=== PATIENT | male | born 1990 | race Caucasian/White ===

== ENCOUNTER 2021-06-23 08:22 | Emergency (ER) | payer OTHER ==
[~2021-06-23] VITALS: Ht 182.9 cm; Wt 83.9 kg
[~2021-06-23 08:22] MED LIST: AMOX500 PO; Bactrim Ds Tab1 EACH PO; CEPH500 PO; Norco 5-325 Ta1 EACH PO; OXYACE5T PO; Percocet 5-3251 EACH PO; Zofran Odt4 MG SL
[2021-06-23 08:35] LABS: Calcium, Ionized (POC) 1.08 mmol/L (1.10-1.46); Chloride (POC) 110 mmol/L (98-108); Creatinine (POC) 0.8 mg/dL (0.8-1.3); Glucose (ISTAT POC) 110 mg/dL (70-99); Hemoglobin (POC) 13.9 g/dL (13.5-17.5); Sodium (POC) 141 mmol/L (135-148); Total CO2 (POC) 18 mmol/L (21-32)
[2021-06-23 08:46] LABS: BASOPHILS ABSOLUTE AUTO 0.03 K/mm3 (0.00-0.23); BASOPHILS PERCENT AUTO 0 % (0-2); EOSINOPHILS ABSOLUTE AUTO 0.02 K/mm3 (0.00-0.68); EOSINOPHILS PERCENT AUTO 0 % (0-6); Hematocrit 40.9 % (37.0-53.0); Hemoglobin 13.9 g/dL (13.5-17.5); IMMATURE GRAN ABSOLUTE AUTO 0.05 K/mm3 (0.00-0.10); IMMATURE GRAN PERCENT AUTO 0 % (0-1); LYMPHOCYTES ABSOLUTE AUTO 0.99 K/mm3 (0.84-5.20); LYMPHOCYTES PERCENT AUTO 7 % (21-46); MONOCYTES PERCENT AUTO 6 % (4-13); Mean Corpuscular HGB 30.4 pg (26.0-34.0); Mean Corpuscular Volume 90 fL (80-100); Mean Platelet Volume 10.8 fL (9.1-12.4); NEUTROPHILS ABSOLUTE AUTO 12.56 K/mm3 (1.96-9.15); NEUTROPHILS PERCENT AUTO 87 % (41-73); Platelet Count 184 K/mm3 (150-400); RDW Coefficient Variation 13.5 % (11.7-14.2); RDW Standard Deviation 44.4 fL (35.1-46.3); Red Blood Cell Count 4.57 M/mm3 (4.30-5.90); White Blood Cell Count 14.45 K/mm3 (4.00-11.30)
[2021-06-23 08:50] LABS: Source, Urine Catheter
[2021-06-23 09:00] LABS: Appearance, Urine Clear (Clear); Bilirubin, Urine Neg (Neg); Blood, Urine 2+ (Neg); Color, Urine Yellow (P-Yellow); Glucose Qualitative, Urine Neg (Neg); Ketones, Urine Neg (Neg); Leukocyte Esterase, Urine 1+ (Neg); Nitrite, Urine Neg (Neg); Protein, Urine 1+ (Neg); Urobilinogen, Urine NORM (Normal); pH, Urine 6.5 (5.0-8.0)
[2021-06-23 09:03] LABS: Alanine Aminotransfer (ALT/SGP 36 U/L (12-78); Albumin, Blood 3.7 g/dL (3.4-5.0); Albumin/Globulin Ratio 1.3 (0.8-1.8); Alk Phos 45 U/L (50-136); Anion Gap 8 mmol/L (6-16); Aspartate Aminotrans (AST/SGOT 37 U/L (12-37); Beta HCG, Quantitative, Serum <1 mIU/mL (0-1); Bilirubin, Total 0.5 mg/dL (0.1-1.0); Blood Urea Nitrogen 12 mg/dL (8-24); Bun/Creatinine Ratio 17.1 (12.0-20.0); CO2, Blood 20 mmol/L (21-32); Calcium, Blood 8.1 mg/dL (8.5-10.1); Chloride, Blood 114 mmol/L (98-108); Ethanol (Alcohol), Blood, Med 122 mg/dL; Globulin, Blood 2.8 g/dL (2.2-4.0); Glomerular Filtration Rate >60 (60-); Glucose, Blood 110 mg/dL (70-99); Potassium, Blood 4.1 mmol/L (3.5-5.5); Sodium, Blood 142 mmol/L (136-145); Total Protein, Blood 6.5 g/dL (6.4-8.2)
[2021-06-23 09:28] LABS: CPK Creatine Kinase 1026 U/L (39-308)
[2021-06-23 09:31] LABS: International Normalized Ratio 1.13; Prothrombin Time Results 12.1 Sec (9.7-11.5)
[2021-06-23 09:32] LABS: Bacteria Rare /hpf; Mucus Light (0-Heavy); Squamous Epithelial Cells Few /hpf (Few)
[2021-06-23 09:42] LABS: Creatine Kinase MB 25.1 ng/mL (0.0-3.6); Creatine Kinase MB Index 2.4 (0.0-4.0)
[2021-06-23 12:33] LABS: U Amphetamine Screen Not Detected; U Barbituate Screen Not Detected; U Benzodiazapine Screen Not Detected; U Buprenorphine Screen Not Detected; U Cannabinoids Screen DETECTED; U Cocaine Screen DETECTED; U Methadone Screen Not Detected; U Methamphetamine Screen Not Detected; U Opiates Screen Not Detected; U Oxycodone Screen Not Detected; U Phencyclidine Screen Not Detected; U Propoxyphene Screen Not Detected
== END 2021-06-23 09:20 | disposition short-term general hospital (02) ==
LOC: ER 08:22
PROVIDERS: Emergency Medicine
DX: S14.155A Other incomplete lesion at C5 level of cervical spinal cord, initial encounter (principal); S00.81XA Abrasion of other part of head, initial encounter; S40.212A Abrasion of left shoulder, initial encounter; S40.211A Abrasion of right shoulder, initial encounter; Z87.891 Personal history of nicotine dependence; V48.5XXA Car driver injured in noncollision transport accident in traffic accident, initial encounter; Y92.488 Other paved roadways as the place of occurrence of the external cause
CPT/HCPCS: 51702; 70450; 71045; 71260; 72125; 72170; 74177; 80047; 80053; 81001; 82550; 82553; 83605; 83690; 84702; 85014; 85025; 85610; 86850; 86900; 86901; 87086; 93005; 93010; 96374-59; 99285-25; G0480; J1170; Q9967

== ENCOUNTER 2021-11-22 17:07 | Emergency (ER) | payer OTHER ==
[~2021-11-22] VITALS: Ht 185.4 cm; Wt 59.0 kg
[2021-11-22] MEDS ORDERED: BACLOFEN10 M4 PO (17:44)
[2021-11-22] MEDS ORDERED: GABAPENTIN600 MG PO (17:45)
[2021-11-22] MEDS ORDERED: Ventolin5 MG/1 ML INH (17:45)
[2021-11-22] MEDS ORDERED: CONSTULOSE10 GM/155 PO (17:46)
[2021-11-22] MEDS ORDERED: ONDA4ODT MM (17:46)
[2021-11-22] MEDS ORDERED: ONELAX10 MG PR (17:47)
== END 2021-11-22 21:11 | disposition home or self-care (01) ==
LOC: ER 17:07
DX: T82.594A Other mechanical complication of infusion catheter, initial encounter (principal); Z87.891 Personal history of nicotine dependence
CPT/HCPCS: 99283

== ENCOUNTER → 2021-11-24 | Outpatient (CLI) | payer OTHER ==
[~2021-11-24] MED LIST changes: +BACLOFEN10 M4 PO; +CONSTULOSE10 GM/155 PO; +GABAPENTIN600 MG PO; +ONDA4ODT MM; +ONELAX10 MG PR; +Ventolin5 MG/1 ML INH
[2021-11-24 17:27] LABS: BASOPHILS ABSOLUTE AUTO 0.01 K/mm3 (0.00-0.23); BASOPHILS PERCENT AUTO 0 % (0-2); EOSINOPHILS ABSOLUTE AUTO 0.07 K/mm3 (0.00-0.68); EOSINOPHILS PERCENT AUTO 2 % (0-6); Hemoglobin 12.2 g/dL (13.5-17.5); IMMATURE GRAN PERCENT AUTO 0 % (0-1); LYMPHOCYTES ABSOLUTE AUTO 1.41 K/mm3 (0.84-5.20); LYMPHOCYTES PERCENT AUTO 34 % (21-46); MONOCYTES ABSOLUTE AUTO 0.43 K/mm3 (0.16-1.47); MONOCYTES PERCENT AUTO 10 % (4-13); Mean Corpuscular HGB 28.4 pg (26.0-34.0); Mean Corpuscular Volume 86 fL (80-100); Mean Platelet Volume 10.6 fL (9.1-12.4); NEUTROPHILS ABSOLUTE AUTO 2.23 K/mm3 (1.96-9.15); NEUTROPHILS PERCENT AUTO 54 % (41-73); Platelet Count 219 K/mm3 (150-400); RDW Coefficient Variation 15.6 % (11.7-14.2); White Blood Cell Count 4.15 K/mm3 (4.00-11.30)
[2021-11-24 17:31] LABS: Anion Gap 6 mmol/L (6-16); Blood Urea Nitrogen 13 mg/dL (8-24); Bun/Creatinine Ratio 40.2 (12.0-20.0); CO2, Blood 27 mmol/L (21-32); Calcium, Blood 8.5 mg/dL (8.5-10.1); Chloride, Blood 106 mmol/L (98-108); Creatinine, Blood 0.32 mg/dL (0.60-1.20); Glomerular Filtration Rate >60 (60-); Glucose, Blood 90 mg/dL (70-99); Potassium, Blood 3.6 mmol/L (3.5-5.5); Sodium, Blood 139 mmol/L (136-145)
== END ==
LOC: LAB HH 16:11
DX: M46.28 Osteomyelitis of vertebra, sacral and sacrococcygeal region (principal)
CPT/HCPCS: 80048; 85025; 86140

== ENCOUNTER → 2021-11-27 | Outpatient (CLI) | payer OTHER ==
[2021-11-27 20:02] LABS: Alanine Aminotransfer (ALT/SGP 74 U/L (12-78); Albumin, Blood 3.2 g/dL (3.4-5.0); Albumin/Globulin Ratio 0.9 (0.8-1.8); Alk Phos 97 U/L (50-136); Anion Gap 6 mmol/L (6-16); Aspartate Aminotrans (AST/SGOT 28 U/L (12-37); Bilirubin, Total 0.2 mg/dL (0.1-1.0); Blood Urea Nitrogen 10 mg/dL (8-24); Bun/Creatinine Ratio 31.9 (12.0-20.0); CO2, Blood 27 mmol/L (21-32); Calcium, Blood 8.6 mg/dL (8.5-10.1); Chloride, Blood 107 mmol/L (98-108); Creatinine, Blood 0.31 mg/dL (0.60-1.20); Globulin, Blood 3.4 g/dL (2.2-4.0); Glomerular Filtration Rate >60 (60-); Glucose, Blood 112 mg/dL (70-99); Potassium, Blood 3.9 mmol/L (3.5-5.5); Sodium, Blood 140 mmol/L (136-145); Total Protein, Blood 6.6 g/dL (6.4-8.2)
== END ==
LOC: LAB 12:55 → LAB SHORT 12:55 → LAB HH 12:55
DX: M46.28 Osteomyelitis of vertebra, sacral and sacrococcygeal region (principal)
CPT/HCPCS: 80053; 86140

== ENCOUNTER 2021-11-29 17:34 | Emergency (ER) | payer OTHER ==
[~2021-11-29] VITALS: Ht 185.4 cm; Wt 59.0 kg
== END 2021-11-29 23:32 | disposition home or self-care (01) ==
LOC: ER 17:34
DX: T82.594A Other mechanical complication of infusion catheter, initial encounter (principal); G40.909 Epilepsy, unspecified, not intractable, without status epilepticus; Z79.899 Other long term (current) drug therapy; Z87.891 Personal history of nicotine dependence
CPT/HCPCS: 99283

== ENCOUNTER 2021-11-30 11:56 | Emergency (ER) | payer OTHER ==
[~2021-11-30] VITALS: Ht 185.4 cm; Wt 59.0 kg
== END 2021-11-30 14:30 | disposition home or self-care (01) ==
LOC: ER 11:56
DX: T82.594A Other mechanical complication of infusion catheter, initial encounter (principal); Z87.891 Personal history of nicotine dependence; Z79.899 Other long term (current) drug therapy
CPT/HCPCS: 99283

== ENCOUNTER → 2021-12-04 | Outpatient (CLI) | payer OTHER ==
[2021-12-04 20:07] LABS: Alanine Aminotransfer (ALT/SGP 45 U/L (12-78); Albumin/Globulin Ratio 0.9 (0.8-1.8); Alk Phos 95 U/L (50-136); Anion Gap 8 mmol/L (6-16); Aspartate Aminotrans (AST/SGOT 16 U/L (12-37); Bilirubin, Total 0.2 mg/dL (0.1-1.0); Blood Urea Nitrogen 9 mg/dL (8-24); CO2, Blood 27 mmol/L (21-32); Calcium, Blood 8.7 mg/dL (8.5-10.1); Chloride, Blood 108 mmol/L (98-108); Creatinine, Blood 0.36 mg/dL (0.60-1.20); Globulin, Blood 3.4 g/dL (2.2-4.0); Glomerular Filtration Rate >60 (60-); Glucose, Blood 97 mg/dL (70-99); Potassium, Blood 4.1 mmol/L (3.5-5.5); Sodium, Blood 143 mmol/L (136-145); Total Protein, Blood 6.4 g/dL (6.4-8.2)
== END ==
LOC: LAB SHORT 14:00 → LAB HH 14:00
PROVIDERS: Nurse Practitioner Family
DX: M46.28 Osteomyelitis of vertebra, sacral and sacrococcygeal region (principal)
CPT/HCPCS: 80053; 86140

== ENCOUNTER → 2021-12-22 | Outpatient (CLI) | payer OTHER ==
[2021-12-22 17:57] LABS: Source, Urine Foley catheter
[2021-12-22 18:53] LABS: Bilirubin, Urine Neg (Neg); Blood, Urine 5+ (Neg); Glucose Qualitative, Urine Neg (Neg); Ketones, Urine Neg (Neg); Leukocyte Esterase, Urine 3+ (Neg); Nitrite, Urine Pos (Neg); Protein, Urine 2+ (Neg); Specific Gravity, Urine 1.015 (1.003-1.022); Urobilinogen, Urine NORM (Normal)
[2021-12-22 19:00] LABS: Appearance, Urine Hazy (Clear); Color, Urine Pale Yellow (P-Yellow)
[2021-12-22 19:02] LABS: Red Blood Cells, Urine 25-50 /hpf (0-2)
[2021-12-22 19:09] LABS: Bacteria Many /hpf; Squamous Epithelial Cells Few /hpf (Few)
[2021-12-22 19:10] LABS: Amorphous Heavy (0-Heavy)
[2021-12-22 19:11] LABS: Calcium Oxalate Crystals Rare /hpf
== END | disposition home or self-care (01) ==
LOC: LAB SHORT 17:54 → LAB HH 17:54
PROVIDERS: Nurse Practitioner Family
DX: N31.9 Neuromuscular dysfunction of bladder, unspecified (principal); Z87.440 Personal history of urinary (tract) infections
CPT/HCPCS: 81001; 87077; 87086; 87186

== ENCOUNTER 2021-12-29 01:10 | Day surgery (SDC) | payer OTHER | END 2021-12-29 22:46 | disposition home or self-care (01) | LOC: WOUND 01:10 | DX: L89.154 Pressure ulcer of sacral region, stage 4 (principal); L89.323 Pressure ulcer of left buttock, stage 3; L89.892 Pressure ulcer of other site, stage 2; G82.21 Paraplegia, complete | CPT/HCPCS: G0463 ==

== ENCOUNTER 2022-01-01 12:42 | Inpatient (IN) | payer OTHER ==
[~2022-01-01] VITALS: Ht 185.4 cm; Wt 56.7 kg
[~2022-01-01 12:42] MED LIST changes: +IPRAT-ALBUT 0.5-3 ML NEB; -Ventolin5 MG/1 ML INH
[2022-01-01 14:22] LABS: BASOPHILS ABSOLUTE AUTO 0.04 K/mm3 (0.00-0.23); BASOPHILS PERCENT AUTO 0 % (0-2); EOSINOPHILS ABSOLUTE AUTO 0.02 K/mm3 (0.00-0.68); EOSINOPHILS PERCENT AUTO 0 % (0-6); Hematocrit 36.1 % (37.0-53.0); IMMATURE GRAN ABSOLUTE AUTO 0.05 K/mm3 (0.00-0.10); IMMATURE GRAN PERCENT AUTO 0 % (0-1); LYMPHOCYTES ABSOLUTE AUTO 1.54 K/mm3 (0.84-5.20); LYMPHOCYTES PERCENT AUTO 10 % (21-46); MONOCYTES ABSOLUTE AUTO 0.77 K/mm3 (0.16-1.47); MONOCYTES PERCENT AUTO 5 % (4-13); Mean Corpuscular HGB 27.4 pg (26.0-34.0); Mean Corpuscular HGB Conc 33.2 g/dL (31.5-36.5); Mean Corpuscular Volume 82 fL (80-100); Mean Platelet Volume 9.5 fL (9.1-12.4); NEUTROPHILS ABSOLUTE AUTO 13.67 K/mm3 (1.96-9.15); NEUTROPHILS PERCENT AUTO 85 % (41-73); Platelet Count 628 K/mm3 (150-400); RDW Coefficient Variation 14.6 % (11.7-14.2); RDW Standard Deviation 43.5 fL (35.1-46.3); Red Blood Cell Count 4.38 M/mm3 (4.30-5.90); White Blood Cell Count 16.09 K/mm3 (4.00-11.30)
[2022-01-01 14:42] LABS: Source, Urine Foley catheter
[2022-01-01 14:42] LABS: Alanine Aminotransfer (ALT/SGP 33 U/L (12-78); Albumin, Blood 3.1 g/dL (3.4-5.0); Albumin/Globulin Ratio 0.6 (0.8-1.8); Alk Phos 103 U/L (50-136); Anion Gap 9 mmol/L (6-16); Aspartate Aminotrans (AST/SGOT 10 U/L (12-37); Bilirubin, Total 0.4 mg/dL (0.1-1.0); Blood Urea Nitrogen 13 mg/dL (8-24); Bun/Creatinine Ratio 44.4 (12.0-20.0); CO2, Blood 24 mmol/L (21-32); Calcium, Blood 9.6 mg/dL (8.5-10.1); Chloride, Blood 108 mmol/L (98-108); Creatinine, Blood 0.29 mg/dL (0.60-1.20); Globulin, Blood 4.8 g/dL (2.2-4.0); Glomerular Filtration Rate >60 (60-); Glucose, Blood 114 mg/dL (70-99); Sodium, Blood 141 mmol/L (136-145); Total Protein, Blood 7.9 g/dL (6.4-8.2)
[2022-01-01 14:46] LABS: Bilirubin, Urine Neg (Neg); Blood, Urine 4+ (Neg); Glucose Qualitative, Urine Neg (Neg); Ketones, Urine 3+ (Neg); Leukocyte Esterase, Urine 3+ (Neg); Nitrite, Urine Pos (Neg); Protein, Urine 3+ (Neg); Specific Gravity, Urine 1.025 (1.003-1.022); Urobilinogen, Urine 1+ (Normal)
[2022-01-01 14:56] LABS: Appearance, Urine Hazy (Clear); Color, Urine Amber (P-Yellow)
[2022-01-01 14:57] LABS: Bacteria Many /hpf; Red Blood Cells, Urine 25-50 /hpf (0-2); Squamous Epithelial Cells Few /hpf (Few)
[2022-01-01 14:58] LABS: Amorphous Light (0-Heavy)
[2022-01-01 15:14] LABS: Influenza A, PCR NEGATIVE (NEGATIVE); Influenza B, PCR NEGATIVE (NEGATIVE); Resp Syncytial Virus, PCR NEGATIVE (NEGATIVE); SARS-Cov-2 (COVID-19) PCR, MMC NEGATIVE (NEGATIVE)
[2022-01-01] MEDS ORDERED: MULVITA PO (18:31)
[2022-01-02 02:59] LABS: Adenovirus Not Detected (NOT DETECT); Bordetella pertussis Not Detected (NOT DETECT); Chlamydophila pneumoniae Not Detected (NOT DETECT); Coronavirus 229E Not Detected (NOT DETECT); Coronavirus HKU1 Not Detected (NOT DETECT); Coronavirus NL63 Not Detected (NOT DETECT); Coronavirus OC43 Not Detected (NOT DETECT); Human Metapneumovirus Not Detected (NOT DETECT); Human Rhinovirus/Enterovirus Not Detected (NOT DETECT); Influenza A/2009-H1 Not Detected (NOT DETECT); Influenza A/H1 Not Detected (NOT DETECT); Influenza A/H3 Not Detected (NOT DETECT); Influenza B Not Detected (NOT DETECT); Mycoplasma pneumoniae Not Detected (NOT DETECT); Parainfluenza Virus 1 Not Detected (NOT DETECT); Parainfluenza Virus 2 Not Detected (NOT DETECT); Parainfluenza Virus 3 Not Detected (NOT DETECT); Parainfluenza Virus 4 Not Detected (NOT DETECT); Respiratory Syncytial Virus Not Detected (NOT DETECT); SARS-Cov-2 (COVID-19), BioFire Not Detected (NOT DETECT)
--- NOTE | 2022-01-02 04:42 | NUR ---
SHIFT SUMMARY PATIENT ALERT AND ORIENTED X4 ABLE TO VOICED NEEDS NO SOB NOTED LUNGS SOUND CLEAR DRY COUGH NOTED C/O NAUSEA X1 WITH NO VOMIT.MCMAHAN CATH DRAINING WELL HI URINE WOUND VAC FROM HOME TO HIS SACRUM REMOVED AND REPLACED WITH HOSPITAL WOUND VAC WOUND TO SACRUM UNSTAGABLE #2 RIGH LOWER BUTTOCK WOUND #3 PRESSURE POINT TO LEFT LOWER BUTTOCK .WOUND TO SACRUM BRIDGE WITH RIGHT BUTTOCK USING ONE WOUND VAC RUNNING AT 120MM/HG AND MAPLEX TO LEFT BUTTOCK PRESSURE POINT.PT QUADRAPLEGIA TURN AND REPOSTION Q 2HRS ON IV ABT VANCOMYCIN .
[2022-01-02 05:53] LABS: Hematocrit 31.8 % (37.0-53.0); Hemoglobin 10.3 g/dL (13.5-17.5); Mean Corpuscular HGB 27.2 pg (26.0-34.0); Mean Corpuscular HGB Conc 32.4 g/dL (31.5-36.5); Mean Corpuscular Volume 84 fL (80-100); Mean Platelet Volume 9.7 fL (9.1-12.4); Platelet Count 584 K/mm3 (150-400); RDW Coefficient Variation 14.6 % (11.7-14.2); RDW Standard Deviation 44.8 fL (35.1-46.3); Red Blood Cell Count 3.79 M/mm3 (4.30-5.90); White Blood Cell Count 12.82 K/mm3 (4.00-11.30)
[2022-01-02 05:58] LABS: Anion Gap 8 mmol/L (6-16); Blood Urea Nitrogen 12 mg/dL (8-24); Bun/Creatinine Ratio 33.7 (12.0-20.0); CO2, Blood 24 mmol/L (21-32); Calcium, Blood 8.8 mg/dL (8.5-10.1); Chloride, Blood 106 mmol/L (98-108); Creatinine, Blood 0.36 mg/dL (0.60-1.20); Glomerular Filtration Rate >60 (60-); Glucose, Blood 86 mg/dL (70-99); Potassium, Blood 3.6 mmol/L (3.5-5.5); Sodium, Blood 138 mmol/L (136-145)
--- NOTE | 2022-01-02 17:16 | NUR ---
SHIFT SUMMARY PT A&O X4 AND IN PLEASENT MOOD T/O SHIFT. PT MOM @ BEDSIDE. TELE DC'ED THIS SHIFT PER ORDERS. PT DENIES PAIN. CLOVER DRESSING TO L BUTTOCKS CHANGED THIS SHIFT, WOUND VAC COMPRESSED AND DRAINING. BLE FOAM BOOTS IN PLACE. MCMAHAN DRAINING TO GRAVITY. VSS. CALL LIGHT W/IN REACH. PLAN TO CONT. IV ABX @ THIS TIME.
[2022-01-02] MEDS ORDERED: [UNRECOGNIZED DRUG - CODE] PO (19:57)
--- NOTE | 2022-01-03 05:00 | NUR ---
SHIFT SUMMARY PATIENT REMAIN ALERT QUOC PAIN AT NO SOB NOTED TURN AND REPOSTION Q 2HRS WOUND VAC ON AND INTACT CONT ABT /IV NO ACUTE CHANGE IN THIS SHIFT
[2022-01-03 05:25] LABS: BASOPHILS ABSOLUTE AUTO 0.07 K/mm3 (0.00-0.23); BASOPHILS PERCENT AUTO 1 % (0-2); EOSINOPHILS ABSOLUTE AUTO 0.06 K/mm3 (0.00-0.68); EOSINOPHILS PERCENT AUTO 1 % (0-6); Hematocrit 31.6 % (37.0-53.0); Hemoglobin 10.3 g/dL (13.5-17.5); IMMATURE GRAN ABSOLUTE AUTO 0.04 K/mm3 (0.00-0.10); IMMATURE GRAN PERCENT AUTO 0 % (0-1); LYMPHOCYTES ABSOLUTE AUTO 1.88 K/mm3 (0.84-5.20); LYMPHOCYTES PERCENT AUTO 16 % (21-46); MONOCYTES PERCENT AUTO 10 % (4-13); Mean Corpuscular HGB 27.2 pg (26.0-34.0); Mean Corpuscular HGB Conc 32.6 g/dL (31.5-36.5); Mean Corpuscular Volume 83 fL (80-100); Mean Platelet Volume 9.7 fL (9.1-12.4); NEUTROPHILS ABSOLUTE AUTO 8.35 K/mm3 (1.96-9.15); NEUTROPHILS PERCENT AUTO 73 % (41-73); Platelet Count 551 K/mm3 (150-400); RDW Coefficient Variation 14.7 % (11.7-14.2); Red Blood Cell Count 3.79 M/mm3 (4.30-5.90)
[2022-01-03 05:49] LABS: Anion Gap 8 mmol/L (6-16); Blood Urea Nitrogen 7 mg/dL (8-24); Bun/Creatinine Ratio 19.2 (12.0-20.0); CO2, Blood 23 mmol/L (21-32); Calcium, Blood 8.8 mg/dL (8.5-10.1); Chloride, Blood 107 mmol/L (98-108); Creatinine, Blood 0.36 mg/dL (0.60-1.20); Glomerular Filtration Rate >60 (60-); Glucose, Blood 103 mg/dL (70-99); Potassium, Blood 3.7 mmol/L (3.5-5.5); Sodium, Blood 138 mmol/L (136-145)
[2022-01-03] MEDS ORDERED: JUVEN PACKET1 EAC3 PO (14:58)
[2022-01-03] MEDS ORDERED: VITAMIN C125 MG PO (14:59)
[2022-01-03] MEDS ORDERED: VISBIOME 112.51 EACH PO (15:00)
[2022-01-03] MEDS ORDERED: ZINC220 PO (15:00)
--- NOTE | 2022-01-03 15:45 | NUR ---
Patient is a [facility] patient who was transferred to [facility] on 01/01/2022 due to sepsis. Patient is to discharge today- 01/03/2022 with resumption of home health orders. Gathered supporting documentation for resumption (face sheet, discharge order, med list, and H&P) and faxed to [facility] for review. No further interventions required. Angela Rodriguez Referral Liaison
--- NOTE | 2022-01-03 17:09 | NUR ---
SHIFT SUMMARY PT IS A&O, PLEASANT AND CO-OP. QUADRAPLEGIC WITH ONLY GROSS MOTOR SKILLS TO BUE'S. CHRONIC MCMAHAN TO GRAVITY, PATENT. WOUND VAC TO BUTTOCKS/COCCYX. IV ABX ADMINISTERED PER EMAR. DR CISNEROS HERE TO SEE PT THIS AM. PT CLEARED FOR D/C. WOUND VAC DRSG CHANGED, PER DR CISNEROS, PRIOR TO D/C HOME. TRANSPORT HERE THIS AFTERNOON TO [facility] PT. HOME WOUND VAC IN PLACE WITH NEW DRSG AT D/C. MEDS FAXED TO [facility], PER PT REQUEST. [facility]ONGING[facility]S WENT WITH PT.
[2022-04-24] MEDS ORDERED: GUAI600T33 PO (14:17)
[2022-04-24] MEDS ORDERED: ALBU90OI INH (14:17)
[2022-04-24] MEDS ORDERED: LINE600 PO (14:18)
[2022-04-24] MEDS ORDERED: AMOCLA875 PO (14:18)
[2022-04-24] MEDS ORDERED: APHEN325 MG PO (14:20)
[2022-05-15] MEDS ORDERED: Acetaminophen325 M1 PO (13:18)
[2022-05-15] MEDS ORDERED: AMOCLA875 PO (13:19)
[2022-05-15] MEDS ORDERED: PROBIOTIC1 EA13 PO (13:21)
[2022-06-02] MEDS ORDERED: CEPH500 PO (16:44)
== END 2022-01-03 16:35 | disposition home or self-care (01) | DRG 871 ==
LOC: ER 12:42 → MEDS 17:07
PROVIDERS: Internal Medicine; Physician Assistant; ADMIT Internal Medicine
DX: A41.9 Sepsis, unspecified organism (principal); L89.153 Pressure ulcer of sacral region, stage 3; G82.50 Quadriplegia, unspecified; E43 Unspecified severe protein-calorie malnutrition; N39.0 Urinary tract infection, site not specified; L03.116 Cellulitis of left lower limb; Z68.1 Body mass index [BMI] 19.9 or less, adult; Z20.822 Contact with and (suspected) exposure to COVID-19; R65.20 Severe sepsis without septic shock; G40.909 Epilepsy, unspecified, not intractable, without status epilepticus; B96.5 Pseudomonas (aeruginosa) (mallei) (pseudomallei) as the cause of diseases classified elsewhere; Z87.891 Personal history of nicotine dependence; Z90.49 Acquired absence of other specified parts of digestive tract; Z79.899 Other long term (current) drug therapy; Y84.6 Urinary catheterization as the cause of abnormal reaction of the patient, or of later complication, without mention of misadventure at the time of the procedure; S12.500S Unspecified displaced fracture of sixth cervical vertebra, sequela; W18.39XD Other fall on same level, subsequent encounter
CPT/HCPCS: 0202U; 0241U; 36415; 51702; 71045; 80048; 80053; 81001; 83605; 83880; 84145; 85025; 85027; 87040; 87077; 87086; 87186; 96365; 96367; 99285-25; A9270; J1650; J2405; J2543; J3370; J7030; J7050

== ENCOUNTER 2022-01-12 02:29 | Day surgery (SDC) | payer OTHER ==
[~2022-01-12 02:29] MED LIST changes: +JUVEN PACKET1 EAC3 PO; +MULVITA PO; +VISBIOME 112.51 EACH PO; +VITAMIN C125 MG PO; +ZINC220 PO; +[UNRECOGNIZED DRUG - CODE] PO
[2022-04-24] MEDS ORDERED: GUAI600T33 PO (14:17)
[2022-04-24] MEDS ORDERED: ALBU90OI INH (14:17)
[2022-04-24] MEDS ORDERED: AMOCLA875 PO (14:18)
[2022-04-24] MEDS ORDERED: LINE600 PO (14:18)
[2022-04-24] MEDS ORDERED: APHEN325 MG PO (14:20)
[2022-05-15] MEDS ORDERED: Acetaminophen325 M1 PO (13:18)
[2022-05-15] MEDS ORDERED: AMOCLA875 PO (13:19)
[2022-05-15] MEDS ORDERED: PROBIOTIC1 EA13 PO (13:21)
[2022-06-02] MEDS ORDERED: CEPH500 PO (16:44)
== END 2022-01-12 23:15 | disposition home or self-care (01) ==
LOC: WOUND 02:29
DX: L89.154 Pressure ulcer of sacral region, stage 4 (principal); L89.892 Pressure ulcer of other site, stage 2; L89.314 Pressure ulcer of right buttock, stage 4; L89.323 Pressure ulcer of left buttock, stage 3; G82.21 Paraplegia, complete
CPT/HCPCS: A9270

== ENCOUNTER 2022-01-19 02:52 | Day surgery (SDC) | payer OTHER | END 2022-01-19 22:52 | disposition home or self-care (01) | LOC: WOUND 02:52 | DX: L89.154 Pressure ulcer of sacral region, stage 4 (principal); L89.314 Pressure ulcer of right buttock, stage 4; L89.323 Pressure ulcer of left buttock, stage 3; G82.21 Paraplegia, complete ==

== ENCOUNTER 2022-02-02 00:23 | Day surgery (SDC) | payer OTHER | END 2022-02-02 23:08 | disposition home or self-care (01) | LOC: WOUND 00:23 | DX: L89.154 Pressure ulcer of sacral region, stage 4 (principal); L89.314 Pressure ulcer of right buttock, stage 4; G82.21 Paraplegia, complete ==

== ENCOUNTER 2022-02-09 02:37 | Day surgery (SDC) | payer OTHER | END 2022-02-09 23:09 | disposition home or self-care (01) | LOC: WOUND 02:37 | DX: L89.154 Pressure ulcer of sacral region, stage 4 (principal); L89.314 Pressure ulcer of right buttock, stage 4; G82.21 Paraplegia, complete ==

== ENCOUNTER 2022-02-23 01:10 | Day surgery (SDC) | payer OTHER | END 2022-02-23 22:44 | disposition home or self-care (01) | LOC: WOUND 01:10 | DX: L89.154 Pressure ulcer of sacral region, stage 4 (principal); L89.314 Pressure ulcer of right buttock, stage 4; G82.21 Paraplegia, complete; R77.0 Abnormality of albumin ==

== ENCOUNTER 2022-03-02 00:23 | Day surgery (SDC) | payer OTHER | END 2022-03-02 22:50 | disposition home or self-care (01) | LOC: WOUND 00:23 | DX: L89.154 Pressure ulcer of sacral region, stage 4 (principal); L89.314 Pressure ulcer of right buttock, stage 4; G82.21 Paraplegia, complete; R77.0 Abnormality of albumin ==

== ENCOUNTER 2022-03-16 01:08 | Day surgery (SDC) | payer OTHER | END 2022-03-17 23:39 | disposition home or self-care (01) | LOC: WOUND 01:08 | DX: L89.154 Pressure ulcer of sacral region, stage 4 (principal); L89.314 Pressure ulcer of right buttock, stage 4; G82.21 Paraplegia, complete; R77.0 Abnormality of albumin ==

== ENCOUNTER 2022-03-30 03:31 | Day surgery (SDC) | payer OTHER | END 2022-03-30 23:14 | disposition home or self-care (01) | LOC: WOUND 03:31 | DX: L89.154 Pressure ulcer of sacral region, stage 4 (principal); L89.314 Pressure ulcer of right buttock, stage 4; G82.21 Paraplegia, complete; R77.0 Abnormality of albumin ==

== ENCOUNTER 2022-04-13 01:17 | Day surgery (SDC) | payer OTHER | END 2022-04-13 22:55 | disposition home or self-care (01) | LOC: WOUND 01:17 | DX: L89.154 Pressure ulcer of sacral region, stage 4 (principal); L89.314 Pressure ulcer of right buttock, stage 4; G82.21 Paraplegia, complete; R77.0 Abnormality of albumin ==

== ENCOUNTER 2022-04-21 08:51 | Inpatient (IN) | payer OTHER ==
[~2022-04-21] VITALS: Ht 177.8 cm; Wt 59.3 kg
[2022-04-21 09:31] LABS: BASOPHILS ABSOLUTE AUTO 0.04 K/mm3 (0.00-0.23); BASOPHILS PERCENT AUTO 0 % (0-2); EOSINOPHILS PERCENT AUTO 0 % (0-6); Hematocrit 41.8 % (37.0-53.0); Hemoglobin 13.7 g/dL (13.5-17.5); IMMATURE GRAN ABSOLUTE AUTO 0.07 K/mm3 (0.00-0.10); IMMATURE GRAN PERCENT AUTO 1 % (0-1); LYMPHOCYTES ABSOLUTE AUTO 0.76 K/mm3 (0.84-5.20); LYMPHOCYTES PERCENT AUTO 6 % (21-46); MONOCYTES PERCENT AUTO 3 % (4-13); Mean Corpuscular HGB 25.9 pg (26.0-34.0); Mean Corpuscular HGB Conc 32.8 g/dL (31.5-36.5); Mean Corpuscular Volume 79 fL (80-100); NEUTROPHILS ABSOLUTE AUTO 12.41 K/mm3 (1.96-9.15); NEUTROPHILS PERCENT AUTO 91 % (41-73); Platelet Count 540 K/mm3 (150-400); RDW Coefficient Variation 16.5 % (11.7-14.2); RDW Standard Deviation 47.3 fL (35.1-46.3); Red Blood Cell Count 5.28 M/mm3 (4.30-5.90); White Blood Cell Count 13.68 K/mm3 (4.00-11.30)
[2022-04-21 09:45] LABS: Magnesium, Blood 2.3 mg/dL (1.6-2.4)
[2022-04-21 09:50] LABS: Alanine Aminotransfer (ALT/SGP 41 U/L (12-78); Albumin, Blood 2.8 g/dL (3.4-5.0); Albumin/Globulin Ratio 0.7 (0.8-1.8); Alk Phos 119 U/L (50-136); Anion Gap 10 mmol/L (6-16); Aspartate Aminotrans (AST/SGOT 26 U/L (12-37); Bilirubin, Direct <0.1 mg/dL (0.0-0.3); Bilirubin, Indirect Unable to Calculate mg/dL (0.1-0.7); Bilirubin, Total 0.2 mg/dL (0.1-1.0); Blood Urea Nitrogen 13 mg/dL (8-24); Bun/Creatinine Ratio 36.1 (12.0-20.0); CO2, Blood 22 mmol/L (21-32); Calcium, Blood 8.7 mg/dL (8.5-10.1); Chloride, Blood 111 mmol/L (98-108); Creatinine, Blood 0.36 mg/dL (0.60-1.20); Globulin, Blood 4.1 g/dL (2.2-4.0); Glomerular Filtration Rate 153 (60-); Glucose, Blood 169 mg/dL (70-99); Phosphorus, Blood 2.5 mg/dL (2.5-4.9); Potassium, Blood 3.6 mmol/L (3.5-5.5); Sodium, Blood 143 mmol/L (136-145); Total Protein, Blood 6.9 g/dL (6.4-8.2)
[2022-04-21 10:14] LABS: International Normalized Ratio 1.09; Prothrombin Time Results 11.4 Sec (9.7-11.5)
[2022-04-21 10:20] LABS: Source, Urine Foley catheter
[2022-04-21 10:33] LABS: Appearance, Urine Hazy (Clear); Bilirubin, Urine Neg (Neg); Blood, Urine 4+ (Neg); Color, Urine Yellow (P-Yellow); Glucose Qualitative, Urine Neg (Neg); Ketones, Urine Neg (Neg); Leukocyte Esterase, Urine 3+ (Neg); Nitrite, Urine Pos (Neg); Protein, Urine 2+ (Neg); Urobilinogen, Urine 1+ (Normal)
[2022-04-21 10:38] LABS: Red Blood Cells, Urine 25-50 /hpf (0-2); White Blood Cells, Urine 50-100 /hpf (0-5)
[2022-04-21 10:39] LABS: Bacteria Many /hpf; Squamous Epithelial Cells Rare /hpf (Few)
[2022-04-21 11:09] LABS: Base Excess Venous 2.1 mmol/L; Bicarbonate Venous 25.2 mmol/L (24.0-30.0); PCO2 Venous 52.2 mmHg (38-42); pH Blood Venous 7.34 (7.34-7.37)
[2022-04-21 12:23] LABS: Influenza A, PCR NEGATIVE (NEGATIVE); Influenza B, PCR NEGATIVE (NEGATIVE); Resp Syncytial Virus, PCR NEGATIVE (NEGATIVE); SARS-Cov-2 (COVID-19) PCR, MMC NEGATIVE (NEGATIVE)
[2022-04-21 12:32] LABS: U Amphetamine Screen Not Detected; U Barbituate Screen Not Detected; U Benzodiazapine Screen Not Detected; U Buprenorphine Screen Not Detected; U Cannabinoids Screen DETECTED; U Cocaine Screen Not Detected; U Methadone Screen Not Detected; U Methamphetamine Screen Not Detected; U Opiates Screen Not Detected; U Oxycodone Screen Not Detected; U Phencyclidine Screen Not Detected; U Propoxyphene Screen Not Detected
--- NOTE | 2022-04-21 15:59 | NUR ---
TRANSFER UPDATE REPORT RECIEVED AT 1554 FROM ER NURSE.
[2022-04-21 16:46] LABS: PCO2 Arterial 37.2 mmHg (35-45); PO2 Arterial 80.1 mmHg (80-100); pH Blood Arterial 7.43 (7.35-7.45)
--- NOTE | 2022-04-21 18:14 | NUR ---
TRANSFER UPDATE PT ARRIVED TO UNIT AT 1615 VIA GURNEY AND SLID TO PCU BED VIA SLIDE SHEET AND 4 STAFF MEMBERS. PT ON RA UPON ARRIVAL WITH AUDIBLE WET SOUNDING LUNGS, LUNGS COARSE THROUGHOUT. PT BEDDING CHANGED AFTER TRANSFERING TO PCU BED DUE TO SOILED LINENS PT WAS CURRENTLY UNDER. PT HAD A BM, CLEANED AND CHANGED AT THIS TIME. PT HAD BED SORES ON HIS SACRUM, PHOTOS TAKEN AND IN CHART. PT WAS ASKED TO VERIFY IF HE WAS DRN STATUS WITH IN ROOM, PT VERIFIED DNR STATUS, ORDER CHANGED TO DNR. PT SATS RANDOMLY DROPS TO MID 80'S, PT REFUSES TO WEAR NC. PT CONNECTED TO TELE, ST IN THE 100'S, NO REPORT OF CHEST PAIN. MCMAHAN IN PLACE UPON ARRVAL, CLOUDY YELLOW URINE WITH SEDIMENT. PT EASILY AGITATED AND BECOMES UNCOOPERATIVE. PT CONNECTED TO CATHETER TEMP PROBE, PT TEMP 99.5, NOTIFIED. PT DID NOT REMEBER BEING BROUGHT TO HOSPITAL, WHEN TOLD THAT HIS BROTHER BROUGHT HIM IN DUE TO SIEZURES, PT RESPONDED "I DID NOT HAVE ANY FUCKING SIEZURE. I HAVE NOT HAD SIEZURES SINCE I WAS A KID." DURING THE ASSESSMENT, PT KEPT REPEATING, "I JUST WANT TO FUCKING SLEEP." WILL FORWARD TO ONCOMING NURSE.
[2022-04-22 02:42] LABS: Adenovirus Not Detected (NOT DETECT); Coronavirus 229E Not Detected (NOT DETECT); Coronavirus HKU1 Not Detected (NOT DETECT); Coronavirus NL63 Not Detected (NOT DETECT); Coronavirus OC43 Not Detected (NOT DETECT)
[2022-04-22 02:43] LABS: Bordetella pertussis Not Detected (NOT DETECT); Chlamydophila pneumoniae Not Detected (NOT DETECT); Human Metapneumovirus Not Detected (NOT DETECT); Human Rhinovirus/Enterovirus Not Detected (NOT DETECT); Influenza A/2009-H1 Not Detected (NOT DETECT); Influenza A/H1 Not Detected (NOT DETECT); Influenza A/H3 Not Detected (NOT DETECT); Influenza B Not Detected (NOT DETECT); Mycoplasma pneumoniae Not Detected (NOT DETECT); Parainfluenza Virus 1 Not Detected (NOT DETECT); Parainfluenza Virus 2 Not Detected (NOT DETECT); Parainfluenza Virus 3 Not Detected (NOT DETECT); Parainfluenza Virus 4 Not Detected (NOT DETECT); Respiratory Syncytial Virus Not Detected (NOT DETECT); SARS-Cov-2 (COVID-19), BioFire Not Detected (NOT DETECT)
--- NOTE | 2022-04-22 05:45 | NUR ---
SHIFT SUMMARY ASSUMED CARE OF PT AT 1900. PT IS A/OX4. PT WAS CANTANKEROUS THE START OF SHIFT BUT TOWARDS THE END PT WAS MORE CALM AND COOPERATIVE WITH CARE. PT DOESNT REMEMBER ANYTHING BEFORE HE AWOKE THIS EVENING. PT EDUCATED ABOUT ADMISSION. HEART SOUNDS REGULAR. LUNG SOUNDS COURSE. PT AGREED TO DEEP SUCTION. RT USED CHEST THERAPY. PT USES SUCTION ON HIS OWN. PT HAS A WEAK COUGH. PT WAS VERY DIAPHORETIC T/O THE NIGHT, BUT A FEBRILE. PT ABLE TO USE GROSS MOTOR MOVEMENT IN ARMS BUT CANT MOVE HIS LEGS. PT STATES HE HAS NO FEELINGS FROM NIPPLES DOWN. MCMAHAN DRAINING HI COLORED URINE. PT WOUNDS DRESSED.
[2022-04-22 07:41] LABS: BASOPHILS ABSOLUTE AUTO 0.04 K/mm3 (0.00-0.23); BASOPHILS PERCENT AUTO 0 % (0-2); EOSINOPHILS ABSOLUTE AUTO 0.01 K/mm3 (0.00-0.68); EOSINOPHILS PERCENT AUTO 0 % (0-6); Hematocrit 32.2 % (37.0-53.0); Hemoglobin 10.7 g/dL (13.5-17.5); IMMATURE GRAN ABSOLUTE AUTO 0.05 K/mm3 (0.00-0.10); IMMATURE GRAN PERCENT AUTO 0 % (0-1); LYMPHOCYTES ABSOLUTE AUTO 2.24 K/mm3 (0.84-5.20); LYMPHOCYTES PERCENT AUTO 14 % (21-46); MONOCYTES ABSOLUTE AUTO 0.86 K/mm3 (0.16-1.47); MONOCYTES PERCENT AUTO 5 % (4-13); Mean Corpuscular HGB Conc 33.2 g/dL (31.5-36.5); Mean Corpuscular Volume 78 fL (80-100); Mean Platelet Volume 9.7 fL (9.1-12.4); NEUTROPHILS ABSOLUTE AUTO 13.35 K/mm3 (1.96-9.15); NEUTROPHILS PERCENT AUTO 81 % (41-73); Platelet Count 412 K/mm3 (150-400); RDW Coefficient Variation 16.8 % (11.7-14.2); RDW Standard Deviation 47.8 fL (35.1-46.3); Red Blood Cell Count 4.12 M/mm3 (4.30-5.90); White Blood Cell Count 16.55 K/mm3 (4.00-11.30)
[2022-04-22 08:04] LABS: Albumin, Blood 2.5 g/dL (3.4-5.0); Albumin/Globulin Ratio 0.7 (0.8-1.8); Bilirubin, Total 0.4 mg/dL (0.1-1.0); Bun/Creatinine Ratio 25.5 (12.0-20.0); Calcium, Blood 8.3 mg/dL (8.5-10.1); Creatinine, Blood 0.31 mg/dL (0.60-1.20); Globulin, Blood 3.5 g/dL (2.2-4.0)
--- NOTE | 2022-04-22 10:03 | NUR ---
Am note Pt alert, oriented x3; cantankerous and mostly cooperative with care. Pt iv pulled out this am. Pt denies pain, sob, nasuea, and dizziness. Pt reports numbness from nipple line down. Tele sinus at 80's, bp stable. Spo2 >90% on ra, ls coarse t/o, breathing even and unlabored. Abd soft nontender, hypoative t/o. Pt unable to move lower body, gross movements to upper extremities. Vss. No other acute changes noted. Will continue to monitor.
[2022-04-22 12:45] LABS: Vancomycin, Trough 10.4 ug/mL (5.0-10.0)
--- NOTE | 2022-04-22 17:24 | NUR ---
Shift summary No changes noted t/o shift. Pt repositioned q2 or more frequently per pt request. Pt denies pain, chest pain/pressure, sob, nausea and dizziness. Pt reports decreased appetite and states he has not been eating at home. Pt receiving iv antibiotics and replace potassium chloride during shift. Pt requesting sleep aid, notified Dr Pastrana, no new orders at this time. Other vss. No s/sx of distress noted. Will continue to monitor until report given to oncoming rn.
--- NOTE | 2022-04-22 20:00 | NUR ---
PT ALERT, ABLE TO COMMUNICATE NEEDS, HAS TOUCHPAD CALL LIGHT. PT HAS GROSS UPPERBODY MOVT, ABLE TO SIP WATER FROM CUP AND PARTIALLY ASSIST W REPOSITIONING. COMPLAINS THAT HE FEELS COLD AND CAN'T GET WARM DESPITE MANY BLANKETS, HAS LOW GRADE FEVER. ALSO, STATES HE CAN NOT SLEEP, "I JUST WANT TO SLEEP", MELATONIN HAS BEEN ORDERED FOR THIS EVENING. NOTED, SOFT FOOT DROP BOOTS IN PLACE. PT IS AGREEABLE FOR VEST CPT THIS EVENING. MCMAHAN DRNG YELLOW URINE.
--- NOTE | 2022-04-23 00:15 | NUR ---
TURNED FREQENTLY, THIS EVENING, SOMETIMES HOURLY. DRINKING LOTS OF WATER, REFUSED SNACK. CONT WO STOOL. LESS "GRUMPY", BUT DOESN'T SEEM TO BE SLEEPING MUCH YET.
[2022-04-23 03:29] LABS: Hematocrit 30.3 % (37.0-53.0); Hemoglobin 10.1 g/dL (13.5-17.5); Mean Corpuscular HGB 26.3 pg (26.0-34.0); Mean Corpuscular HGB Conc 33.3 g/dL (31.5-36.5); Mean Corpuscular Volume 79 fL (80-100); Mean Platelet Volume 9.8 fL (9.1-12.4); Platelet Count 383 K/mm3 (150-400); RDW Coefficient Variation 16.8 % (11.7-14.2); RDW Standard Deviation 48.2 fL (35.1-46.3); Red Blood Cell Count 3.84 M/mm3 (4.30-5.90); White Blood Cell Count 10.02 K/mm3 (4.00-11.30)
[2022-04-23 03:47] LABS: Albumin, Blood 2.5 g/dL (3.4-5.0); Anion Gap 8 mmol/L (6-16); Blood Urea Nitrogen 8 mg/dL (8-24); Bun/Creatinine Ratio 20.6 (12.0-20.0); CO2, Blood 25 mmol/L (21-32); Calcium, Blood 8.4 mg/dL (8.5-10.1); Chloride, Blood 105 mmol/L (98-108); Creatinine, Blood 0.39 mg/dL (0.60-1.20); Glomerular Filtration Rate 149 (60-); Glucose, Blood 106 mg/dL (70-99); Phosphorus, Blood 3.4 mg/dL (2.5-4.9); Potassium, Blood 3.3 mmol/L (3.5-5.5); Sodium, Blood 138 mmol/L (136-145)
--- NOTE | 2022-04-23 06:28 | NUR ---
PT AWAKE, WATCHING TV. STATES DID NOT SLEEP WELL, DESPITE MELATONIN WHICH MAYBE HELPED, BUT FREQ AWAKENED FOR REPOSITIONING OR OTHER CARES. THIS AM STATES THAT HE IS HAVING SPASMODIC PAIN UPPER LEGS, R MORE THAN L. CONT ON RA, NO COUGH THIS AM. PT ENCOURAGED TO TAKE HIS MEALS TODAY, STRESSING NUTRITION TO AID WOUND HEALING.
--- NOTE | 2022-04-23 17:55 | NUR ---
Shift Summary Pt alert, oriented x4; cooperative with care. Appears to be better spirits. Pt on bedrest, unable to move ble, and reports numbness from nipple line down. Pt has gross movement to ble, fingers are contracted. Pt denies pain, chest pain/pressure, sob, nasuea and dizziness. Pt spo2 >90% on ra, breathing even and unlabored. Tele sinus rhythm this am, bp stable. Pt changed status to med no tele per orders. No bm during shift, pt refusing miralax. Pt had episode of nasuea and emesis this am, medicated with zofran, with positive results. Dressing changed on coccyx and right hip this am; wound vac replaced this afternoon via wound center rn. Vss. No other acute changes noted. Will continue to monitor until report given to oncoming rn.
[2022-04-23 22:55] LABS: Vancomycin, Trough 16.5 ug/mL (5.0-10.0)
--- NOTE | 2022-04-24 05:50 | NUR ---
SHIFT SUMMARY NO ACUTE CHANGES THIS SHIFT. VSS. AXO. COOPERATIVE. NO TELE, MEDICAL STATUS. ON RA. NO BM THIS SHIFT. MCMAHAN PATENT AND DRAINING. WOUND VAC IN PLACE TO SACRUM, PATENT. FOAM PAD TO HIP AND SACRUM. FOOT DROP BOOTS TO FEET. PT BEING REPOSITIONED BY STAFF WHEN PT ALLOWING. PT HAD REQUESTED TO HAVE CHUNKS OF TIME UNINTERRUPTED TO ATTEMPT TO SLEEP HE FEELS HE HAS NOT HAD ANY SLEEP POST HOSPITALIZTION. RN ALLOWED THIS TO BEST OF ABILITY WITH SAFETY IN MIND, RN ABLE TO PEEK IN DOOR TO CHECK ON PT. PT STATES HAVING "SOME REST". POWER GLIDE TO SANDRA, PATENT, DRAWS BLOOD. OTHERWISE, PT USING CALL LIGHT APPROPRIATELY.
[2022-04-24 06:15] LABS: Albumin, Blood 2.8 g/dL (3.4-5.0); Anion Gap 7 mmol/L (6-16); Blood Urea Nitrogen 8 mg/dL (8-24); Bun/Creatinine Ratio 25.1 (12.0-20.0); CO2, Blood 24 mmol/L (21-32); Calcium, Blood 8.8 mg/dL (8.5-10.1); Chloride, Blood 109 mmol/L (98-108); Creatinine, Blood 0.32 mg/dL (0.60-1.20); Glomerular Filtration Rate 158 (60-); Glucose, Blood 102 mg/dL (70-99); Phosphorus, Blood 3.2 mg/dL (2.5-4.9); Potassium, Blood 3.9 mmol/L (3.5-5.5); Sodium, Blood 140 mmol/L (136-145)
[2022-04-24] MEDS ORDERED: ALBU90OI INH ×2 (14:17)
[2022-04-24] MEDS ORDERED: GUAI600T33 PO ×2 (14:17)
[2022-04-24] MEDS ORDERED: LINE600 PO ×2 (14:18)
[2022-04-24] MEDS ORDERED: AMOCLA875 PO ×2 (14:18)
[2022-04-24] MEDS ORDERED: APHEN325 MG PO ×2 (14:20)
--- NOTE | 2022-04-24 18:40 | NUR ---
Discharge summary Pt alert, oriented x4; cooperative with care. Pt resting in bed, q2 turn, specialty bed order and changed out this am. Pt denies pain, chest pain/pressure, sob, nausea and dizziness. Spo2 >90% on ra. Home wound vac in place, changed yesterday. Chronic beasley patent and draining. vss. No other acute changes noted. Pt educated on discharge instructions, follow up appointments and medications. Prescriptions sent [facility] in [place] per pt request. pt left with gurney transports to home.
== END 2022-04-24 18:23 | disposition home health service (06) | DRG 871 ==
LOC: ER 08:51 → MEDS 15:05 → PCU 16:09
PROVIDERS: Emergency Medicine; Family Medicine; Physician Assistant; ADMIT Internal Medicine
DX: A41.02 Sepsis due to Methicillin resistant Staphylococcus aureus (principal); L89.154 Pressure ulcer of sacral region, stage 4; J96.01 Acute respiratory failure with hypoxia; J69.0 Pneumonitis due to inhalation of food and vomit; G92.8 Other toxic encephalopathy; E43 Unspecified severe protein-calorie malnutrition; J15.212 Pneumonia due to Methicillin resistant Staphylococcus aureus; T83.511A Infection and inflammatory reaction due to indwelling urethral catheter, initial encounter; G82.20 Paraplegia, unspecified; Z68.1 Body mass index [BMI] 19.9 or less, adult; T17.890A Other foreign object in other parts of respiratory tract causing asphyxiation, initial encounter; N31.9 Neuromuscular dysfunction of bladder, unspecified; B95.5 Unspecified streptococcus as the cause of diseases classified elsewhere; B96.4 Proteus (mirabilis) (morganii) as the cause of diseases classified elsewhere; R65.20 Severe sepsis without septic shock; G40.909 Epilepsy, unspecified, not intractable, without status epilepticus; Z66 Do not resuscitate; Z20.822 Contact with and (suspected) exposure to COVID-19; E87.6 Hypokalemia; G47.00 Insomnia, unspecified; Z90.49 Acquired absence of other specified parts of digestive tract; S24.104S Unspecified injury at T11-T12 level of thoracic spinal cord, sequela; Z98.890 Other specified postprocedural states; Z79.899 Other long term (current) drug therapy; Y84.6 Urinary catheterization as the cause of abnormal reaction of the patient, or of later complication, without mention of misadventure at the time of the procedure
CPT/HCPCS: 0202U; 0241U; 36415; 36600; 51702; 70450; 71045; 71260; 80053; 80069; 80202; 81001; 82248; 82550; 82803; 83605; 83735; 84100; 84145; 85025; 85027; 85610; 85730; 87070; 87077; 87086; 87147; 87186; 87205; 93005; 93010; 94640; 94664; 94667; 94668; 94760; 94762; 96361; 96365; 96375; 96376; 99285-25; A9270; C1751; J1650; J2060; J2405; J2543; J3370; J3480; J7030; J7040; J7060; Q9967

== ENCOUNTER 2022-04-25 01:54 | Day surgery (SDC) | payer OTHER ==
[~2022-04-25 01:54] MED LIST changes: +ALBU90OI INH; +AMOCLA875 PO; +APHEN325 MG PO; +GUAI600T33 PO; +LINE600 PO
== END 2022-04-25 22:43 | disposition home or self-care (01) ==
LOC: WOUND 01:54
DX: L89.154 Pressure ulcer of sacral region, stage 4 (principal); L89.314 Pressure ulcer of right buttock, stage 4; G82.21 Paraplegia, complete; R77.0 Abnormality of albumin

== ENCOUNTER 2022-05-09 04:20 | Day surgery (SDC) | payer OTHER ==
[2022-05-15] MEDS ORDERED: Acetaminophen325 M1 PO (13:18)
[2022-05-15] MEDS ORDERED: AMOCLA875 PO (13:19)
[2022-05-15] MEDS ORDERED: PROBIOTIC1 EA13 PO (13:21)
[2022-06-02] MEDS ORDERED: CEPH500 PO (16:44)
== END 2022-05-09 23:54 ==
LOC: WOUND 04:20
DX: L89.154 Pressure ulcer of sacral region, stage 4 (principal); L89.314 Pressure ulcer of right buttock, stage 4; L89.214 Pressure ulcer of right hip, stage 4; G82.21 Paraplegia, complete; R77.0 Abnormality of albumin

== ENCOUNTER 2022-05-13 14:04 | Inpatient (IN) | payer OTHER | END 2022-05-15 17:35 | disposition home or self-care (01) | DRG 698 | LOC: ER 14:04 → ICUW 20:02 → ICUE 20:20 | PROVIDERS: ADMIT Internal Medicine | PROC: 3E03329 Introduction of Other Anti-infective into Peripheral Vein, Percutaneous Approach (ICD-10-PCS; principal; 2022-05-13) | PROC: 3E033XZ Introduction of Vasopressor into Peripheral Vein, Percutaneous Approach (ICD-10-PCS; 2022-05-13) | DX: T83.511A Infection and inflammatory reaction due to indwelling urethral catheter, initial encounter (principal); A41.4 Sepsis due to anaerobes; R65.21 Severe sepsis with septic shock; G82.20 Paraplegia, unspecified; R11.2 Nausea with vomiting, unspecified; N30.90 Cystitis, unspecified without hematuria; M50.30 Other cervical disc degeneration, unspecified cervical region; G40.909 Epilepsy, unspecified, not intractable, without status epilepticus; N31.8 Other neuromuscular dysfunction of bladder; B96.4 Proteus (mirabilis) (morganii) as the cause of diseases classified elsewhere; Z90.49 Acquired absence of other specified parts of digestive tract; Z98.890 Other specified postprocedural states; S14.106S Unspecified injury at C6 level of cervical spinal cord, sequela; I69.369 Other paralytic syndrome following cerebral infarction affecting unspecified side ==

== ENCOUNTER 2022-06-08 02:02 | Day surgery (SDC) | payer OTHER ==
[~2022-06-08 02:02] MED LIST changes: +Acetaminophen325 M1 PO; +PROBIOTIC1 EA13 PO
== END 2022-06-08 23:24 | disposition home or self-care (01) ==
LOC: WOUND 02:02
DX: L89.154 Pressure ulcer of sacral region, stage 4 (principal); L89.314 Pressure ulcer of right buttock, stage 4; G82.21 Paraplegia, complete; R77.0 Abnormality of albumin

== ENCOUNTER → 2022-06-15 | Outpatient (CLI) | payer OTHER | END | disposition home or self-care (01) | LOC: LAB HH 17:53 | DX: N39.0 Urinary tract infection, site not specified (principal); R33.0 Drug induced retention of urine ==

== ENCOUNTER 2022-07-11 07:48 | Day surgery (SDC) | payer OTHER | END 2022-07-11 23:35 | disposition home or self-care (01) | LOC: WOUND 07:48 | DX: L89.154 Pressure ulcer of sacral region, stage 4 (principal); L89.314 Pressure ulcer of right buttock, stage 4; G82.21 Paraplegia, complete; R77.0 Abnormality of albumin ==

== ENCOUNTER 2022-07-15 10:38 | Emergency (ER) | payer OTHER ==
[~2022-07-15] VITALS: Ht 175.3 cm; Wt 59.0 kg
[2022-07-15] MEDS ORDERED: BACL10 PO (11:32)
[2022-07-15 11:47] LABS: Source, Urine Foley catheter
[2022-07-15 11:52] LABS: Appearance, Urine Clear (Clear); Bilirubin, Urine Neg (Neg); Blood, Urine 2+ (Neg); Color, Urine Yellow (P-Yellow); Glucose Qualitative, Urine Neg (Neg); Ketones, Urine Neg (Neg); Leukocyte Esterase, Urine 3+ (Neg); Nitrite, Urine Pos (Neg); Protein, Urine Neg (Neg); Urobilinogen, Urine NORM (Normal)
[2022-07-15] MEDS ORDERED: CEFD300 PO (11:59)
[2022-07-15 12:10] LABS: Amorphous Light (0-Heavy); Bacteria Mod /hpf; Red Blood Cells, Urine 0-2 /hpf (0-2); Squamous Epithelial Cells Rare /hpf (Few)
== END 2022-07-15 12:46 | disposition home or self-care (01) ==
LOC: ER 10:38
PROVIDERS: Emergency Medicine
DX: N39.0 Urinary tract infection, site not specified (principal); Z87.891 Personal history of nicotine dependence; Z96.0 Presence of urogenital implants
CPT/HCPCS: 51702; 81001

== ENCOUNTER 2022-08-17 01:09 | Day surgery (SDC) | payer OTHER ==
[~2022-08-17 01:09] MED LIST changes: +BACL10 PO; +CEFD300 PO
== END 2022-08-17 23:13 | disposition home or self-care (01) ==
LOC: WOUND 01:09
DX: L89.154 Pressure ulcer of sacral region, stage 4 (principal); L89.314 Pressure ulcer of right buttock, stage 4; G82.21 Paraplegia, complete; R77.0 Abnormality of albumin; G82.20 Paraplegia, unspecified

== ENCOUNTER 2022-09-19 02:02 | Day surgery (SDC) | payer OTHER | END 2022-09-19 23:04 | disposition home or self-care (01) | LOC: WOUND 02:02 | DX: L89.154 Pressure ulcer of sacral region, stage 4 (principal); L89.314 Pressure ulcer of right buttock, stage 4; G82.20 Paraplegia, unspecified; R77.0 Abnormality of albumin ==

== ENCOUNTER 2022-09-21 00:54 | Emergency (ER) | payer OTHER ==
[~2022-09-21] VITALS: Ht 182.9 cm; Wt 56.7 kg
[2022-09-21 01:29] LABS: Source, Urine Foley catheter
[2022-09-21 01:32] LABS: Appearance, Urine Hazy (Clear); Bilirubin, Urine Neg (Neg); Blood, Urine 3+ (Neg); Color, Urine Yellow (P-Yellow); Glucose Qualitative, Urine Neg (Neg); Ketones, Urine 1+ (Neg); Leukocyte Esterase, Urine 3+ (Neg); Nitrite, Urine Pos (Neg); Protein, Urine 1+ (Neg); Urobilinogen, Urine NORM (Normal)
[2022-09-21 01:47] LABS: Red Blood Cells, Urine 0-2 /hpf (0-2)
[2022-09-21 01:48] LABS: Amorphous Light (0-Heavy); Bacteria Mod /hpf; Squamous Epithelial Cells Rare /hpf (Few)
== END 2022-09-21 06:31 | disposition home or self-care (01) ==
LOC: ER 00:54
PROVIDERS: Student in an Organized Health Care Education/Training Program
DX: T83.098A Other mechanical complication of other urinary catheter, initial encounter (principal); R33.9 Retention of urine, unspecified; Z79.899 Other long term (current) drug therapy; Z87.891 Personal history of nicotine dependence; Y84.6 Urinary catheterization as the cause of abnormal reaction of the patient, or of later complication, without mention of misadventure at the time of the procedure
CPT/HCPCS: 81001; 87077; 87086; 87186

== ENCOUNTER 2022-10-10 08:36 | Emergency (ER) | payer OTHER ==
[~2022-10-10] VITALS: Ht 185.4 cm; Wt 56.7 kg
== END 2022-10-10 12:00 | disposition home or self-care (01) ==
LOC: ER 08:36
DX: T83.091A Other mechanical complication of indwelling urethral catheter, initial encounter (principal); Y73.8 Miscellaneous gastroenterology and urology devices associated with adverse incidents, not elsewhere classified; Z79.899 Other long term (current) drug therapy; Z87.891 Personal history of nicotine dependence
CPT/HCPCS: 51702

== ENCOUNTER 2022-10-17 00:53 | Day surgery (SDC) | payer OTHER | END 2022-10-17 23:56 | disposition home or self-care (01) | LOC: WOUND 00:53 | DX: L89.154 Pressure ulcer of sacral region, stage 4 (principal); L89.314 Pressure ulcer of right buttock, stage 4; G82.21 Paraplegia, complete; R77.0 Abnormality of albumin ==

== ENCOUNTER 2022-11-14 05:29 | Day surgery (SDC) | payer OTHER | END 2022-11-14 23:00 | disposition home or self-care (01) | LOC: WOUND 05:29 | DX: L89.154 Pressure ulcer of sacral region, stage 4 (principal); L89.314 Pressure ulcer of right buttock, stage 4; G82.21 Paraplegia, complete; R77.0 Abnormality of albumin | CPT/HCPCS: G0463 ==

== ENCOUNTER 2022-12-26 01:08 | Day surgery (SDC) | payer OTHER | END 2022-12-26 22:44 | disposition home or self-care (01) | LOC: WOUND 01:08 | DX: L89.154 Pressure ulcer of sacral region, stage 4 (principal); L89.214 Pressure ulcer of right hip, stage 4; G82.21 Paraplegia, complete | CPT/HCPCS: G0463 ==

== ENCOUNTER 2023-01-30 02:22 | Day surgery (SDC) | payer OTHER | END 2023-01-30 22:58 | disposition home or self-care (01) | LOC: WOUND 02:22 | DX: L89.154 Pressure ulcer of sacral region, stage 4 (principal); L89.214 Pressure ulcer of right hip, stage 4; G82.21 Paraplegia, complete | CPT/HCPCS: G0463 ==

== ENCOUNTER 2023-02-13 01:16 | Day surgery (SDC) | payer OTHER | END 2023-02-13 22:59 | disposition home or self-care (01) | LOC: WOUND 01:16 | DX: L89.154 Pressure ulcer of sacral region, stage 4 (principal); L89.314 Pressure ulcer of right buttock, stage 4; G82.21 Paraplegia, complete; R77.0 Abnormality of albumin | CPT/HCPCS: G0463 ==

== ENCOUNTER 2023-02-27 03:15 | Day surgery (SDC) | payer OTHER | END 2023-02-27 22:37 | disposition home or self-care (01) | LOC: WOUND 03:15 | DX: L89.154 Pressure ulcer of sacral region, stage 4 (principal); L89.314 Pressure ulcer of right buttock, stage 4; G82.21 Paraplegia, complete; R77.0 Abnormality of albumin | CPT/HCPCS: G0463 ==

== ENCOUNTER 2023-03-13 00:27 | Day surgery (SDC) | payer OTHER | END 2023-03-13 22:49 | disposition home or self-care (01) | LOC: WOUND 00:27 | DX: L89.154 Pressure ulcer of sacral region, stage 4 (principal); L89.314 Pressure ulcer of right buttock, stage 4; G82.21 Paraplegia, complete; R77.0 Abnormality of albumin | CPT/HCPCS: G0463 ==

== ENCOUNTER → 2023-03-26 | Outpatient (CLI) | payer OTHER ==
[2023-03-26 16:57] LABS: Source, Urine Foley catheter
[2023-03-26 17:09] LABS: Appearance, Urine Clear (Clear); Bilirubin, Urine Neg (Neg); Blood, Urine 2+ (Neg); Color, Urine Yellow (P-Yellow); Glucose Qualitative, Urine Neg (Neg); Ketones, Urine Neg (Neg); Leukocyte Esterase, Urine 3+ (Neg); Nitrite, Urine Neg (Neg); Protein, Urine Neg (Neg); Urobilinogen, Urine NORM (Normal)
[2023-03-26 17:28] LABS: Bacteria Few /hpf; Mucus Light (0-Heavy); Squamous Epithelial Cells Not Seen /hpf (Few)
== END | disposition home or self-care (01) ==
LOC: LAB SHORT 14:00 → LAB 14:00
PROVIDERS: Urology
DX: N39.0 Urinary tract infection, site not specified (principal); N18.9 Chronic kidney disease, unspecified
CPT/HCPCS: 81001; 87086

== ENCOUNTER → 2023-05-01 | Outpatient (CLI) | payer OTHER ==
[2023-05-01 16:24] LABS: Appearance, Urine Hazy (Clear); Bilirubin, Urine Neg (Neg); Blood, Urine 4+ (Neg); Color, Urine Yellow (P-Yellow); Glucose Qualitative, Urine Neg (Neg); Ketones, Urine Neg (Neg); Leukocyte Esterase, Urine 3+ (Neg); Nitrite, Urine Pos (Neg); Protein, Urine 3+ (Neg); Specific Gravity, Urine 1.015 (1.003-1.022); Urobilinogen, Urine NORM (Normal); pH, Urine 6.5 (5.0-8.0)
[2023-05-01 16:43] LABS: Bacteria Many /hpf; Squamous Epithelial Cells Rare /hpf (Few); White Blood Cells, Urine 50-100 /hpf (0-5)
== END | disposition home or self-care (01) ==
LOC: LAB SHORT 12:45 → LAB 12:45
PROVIDERS: Family Medicine
DX: Z46.6 Encounter for fitting and adjustment of urinary device (principal); R82.90 Unspecified abnormal findings in urine
CPT/HCPCS: 81001; 87077; 87086; 87186

== ENCOUNTER 2023-05-15 04:10 | Day surgery (SDC) | payer OTHER | END 2023-05-15 22:58 | disposition home or self-care (01) | LOC: WOUND 04:10 | DX: L89.154 Pressure ulcer of sacral region, stage 4 (principal); L89.314 Pressure ulcer of right buttock, stage 4; G82.21 Paraplegia, complete; R77.0 Abnormality of albumin | CPT/HCPCS: G0463 ==

== ENCOUNTER 2024-07-16 02:56 | Day surgery (SDC) | payer MEDICARE, OTHER | END 2024-07-16 22:52 | disposition home or self-care (01) | LOC: WOUND 02:56 | DX: L89.323 Pressure ulcer of left buttock, stage 3 (principal); G82.54 Quadriplegia, C5-C7 incomplete | CPT/HCPCS: A6213; G0463 ==

== ENCOUNTER 2024-07-30 02:16 | Day surgery (SDC) | payer MEDICARE, OTHER | END 2024-07-30 23:00 | disposition home or self-care (01) | LOC: WOUND 02:16 | DX: L89.323 Pressure ulcer of left buttock, stage 3 (principal); G82.54 Quadriplegia, C5-C7 incomplete; I10 Essential (primary) hypertension | CPT/HCPCS: A6213; G0463 ==

== ENCOUNTER 2024-08-27 03:16 | Day surgery (SDC) | payer MEDICARE, OTHER | END 2024-08-27 23:00 | disposition home or self-care (01) | LOC: WOUND 03:16 | DX: L89.323 Pressure ulcer of left buttock, stage 3 (principal); G82.54 Quadriplegia, C5-C7 incomplete | CPT/HCPCS: A6213; G0463 ==

== ENCOUNTER → 2025-05-05 | Outpatient (CLI) | payer MEDICARE, OTHER ==
[2025-05-05 15:19] LABS: Source, Urine Foley catheter
[2025-05-05 15:41] LABS: Bilirubin, Urine Neg (Neg); Glucose Qualitative, Urine Neg (Neg); Ketones, Urine Neg (Neg); Leukocyte Esterase, Urine 3+ (Neg); Protein, Urine 1+ (Neg); Specific Gravity, Urine 1.005 (1.003-1.022); Urobilinogen, Urine NORM (Normal)
[2025-05-05 16:58] LABS: Color, Urine Pale Yellow (P-Yellow)
[2025-05-05 16:59] LABS: Red Blood Cells, Urine 0-2 /hpf (0-2)
== END | disposition home or self-care (01) ==
LOC: LAB SHORT 13:50 → LAB 13:50
PROVIDERS: Family Medicine
DX: G82.54 Quadriplegia, C5-C7 incomplete (principal)
CPT/HCPCS: 81001; 87077; 87086; 87186

== ENCOUNTER 2025-09-29 04:33 | Emergency (ER) | payer MEDICARE, OTHER ==
[~2025-09-29] VITALS: Ht 175.3 cm; Wt 56.7 kg
[2025-09-29 04:46] VITALS: BP 81/56
[2025-09-29 05:14] LABS: BASOPHILS ABSOLUTE AUTO 0.01 K/mm3 (0.00-0.23); BASOPHILS PERCENT AUTO 0 % (0-2); EOSINOPHILS ABSOLUTE AUTO 0.01 K/mm3 (0.00-0.68); EOSINOPHILS PERCENT AUTO 0 % (0-6); Hematocrit 46.7 % (37.0-53.0); Hemoglobin 16.2 g/dL (13.5-17.5); IMMATURE GRAN ABSOLUTE AUTO 0.09 K/mm3 (0.00-0.10); IMMATURE GRAN PERCENT AUTO 1 % (0-1); LYMPHOCYTES ABSOLUTE AUTO 0.61 K/mm3 (0.84-5.20); LYMPHOCYTES PERCENT AUTO 6 % (21-46); MONOCYTES ABSOLUTE AUTO 0.62 K/mm3 (0.16-1.47); MONOCYTES PERCENT AUTO 6 % (4-13); Mean Corpuscular HGB Conc 34.7 g/dL (31.5-36.5); Mean Corpuscular Volume 90 fL (80-100); NEUTROPHILS ABSOLUTE AUTO 9.66 K/mm3 (1.96-9.15); NEUTROPHILS PERCENT AUTO 88 % (41-73); NRBC ABSOLUTE 0.00 K/mm3 (0.00-0.02); NRBC Auto 0.0 /100 WBC (0.0-0.2); Platelet Count 232 K/mm3 (150-400); RDW Coefficient Variation 14.1 % (11.7-14.2); RDW Standard Deviation 45.9 fL (35.1-46.3)
[2025-09-29 05:51] LABS: Alanine Aminotransfer (ALT/SGP 28.0 U/L (12-78); Albumin, Blood 3.6 g/dL (3.4-5.0); Albumin/Globulin Ratio 1.1 (0.8-1.8); Anion Gap 11.0 mmol/L (3-11); Aspartate Aminotrans (AST/SGOT 20.0 U/L (12-37); Bilirubin, Total 0.8 mg/dL (0.1-1.0); Blood Urea Nitrogen 19.0 mg/dL (8-24); CO2, Blood 21.0 mmol/L (21-32); Calcium, Blood 9.1 mg/dL (8.5-10.1); Chloride, Blood 104.0 mmol/L (98-108); Creatinine, Blood 0.73 mg/dL (0.60-1.20); Globulin, Blood 3.2 g/dL (2.2-4.0); Glucose, Blood 123.0 mg/dL (70-99); Potassium, Blood 3.3 mmol/L (3.5-5.5); Sodium, Blood 133.0 mmol/L (136-145); Total Protein, Blood 6.8 g/dL (6.4-8.2)
[2025-09-29 06:16] LABS: Magnesium, Blood 1.9 mg/dL (1.6-2.4); Phosphorus, Blood 2.6 mg/dL (2.5-4.9)
[2025-09-29 07:59] LABS: Source, Urine Clean Catch
[2025-09-29 08:05] LABS: Bilirubin, Urine Neg (Neg); Color, Urine Yellow (P-Yellow); Glucose Qualitative, Urine 1+ (Neg); Ketones, Urine 3+ (Neg); Leukocyte Esterase, Urine 3+ (Neg); Protein, Urine 4+ (Neg); Specific Gravity, Urine 1.010 (1.003-1.022); Urobilinogen, Urine NORM (Normal)
[2025-09-29] MEDS ORDERED: Ondansetron 4 MG SoluTab SL ONE (08:05)
[2025-09-29 08:20] LABS: White Blood Cells, Urine 50-100 /hpf (0-5)
[2025-09-29] MEDS ORDERED: CEFD300 PO (08:36)
[2025-09-29] MEDS ORDERED: ONDA4ODT MM (08:36)
== END 2025-09-29 09:56 | disposition home or self-care (01) ==
LOC: ER 04:33
PROVIDERS: Emergency Medicine
DX: T83.511A Infection and inflammatory reaction due to indwelling urethral catheter, initial encounter (principal); N39.0 Urinary tract infection, site not specified; Y84.6 Urinary catheterization as the cause of abnormal reaction of the patient, or of later complication, without mention of misadventure at the time of the procedure; E86.0 Dehydration; G40.909 Epilepsy, unspecified, not intractable, without status epilepticus; Z87.828 Personal history of other (healed) physical injury and trauma; Z79.899 Other long term (current) drug therapy
CPT/HCPCS: 51798; 80053; 81001; 83735; 84100; 85025; 87086; 93005; 93010; 99284-25; A9270